=== PATIENT | female | born 1985 ===

== ENCOUNTER 2024-02-15 12:15 | Inpatient (IN) | payer OTHER ==
[~2024-02-15] VITALS: Ht 154.9 cm; Wt 63.0 kg
[2024-02-15 11:03] VITALS: BP 98/62
[~2024-02-15 12:15] MED LIST: BENADRYL25 MG; DICY20TA; EPIPEN0.3 MG/0.1; PANTOPRAZOLE SO20 MG; SINGULAIR10 MG; ZOFRAN; ZYRTEC10 MG
[2024-02-15 13:14] LABS: RH NEGATIVE
[2024-02-23] MEDS ORDERED: ONDANSETRON ODT4 MG (14:42)
[2024-02-23] MEDS ORDERED: CELECOXIB 200 MG CAPSULE PO STA (15:32)
[2024-02-23] MEDS ORDERED: ACETAMINOPHEN 325 MG TABLET PO STA (15:32)
[2024-02-23] MEDS ORDERED: MORPHINE SULFATE 4 MG/ML VIAL IV ONE ×2 (15:35→19:00)
[2024-02-23] MEDS ORDERED: GABAPENTIN 100 MG CAPSULE PO SCH (17:00)
[2024-02-23] MEDS ORDERED: CEFOXITIN SODIUM 2,000 MG VIAL IV SCH (17:00)
[2024-02-23] MEDS ORDERED: ONDANSETRON HCL 2 MG/ML VIAL IV SCH (17:00)
[2024-02-23] MEDS ORDERED: RINGERS SOLUTION,LACTATED 1,000 ML IV SCH (17:00)
[2024-02-23] MEDS ORDERED: MORPHINE SULFATE 4 MG/ML CARTRIDGE IV SCH (18:00)
[2024-02-23 19:37] LABS: HEMATOCRIT 33.1 % (36.0-45.00); HEMOGLOBIN 10.5 g/dL (12.0-15.00); MEAN CELL VOLUME 70.8 fL (80.00-100.00); MEAN CORPUSCULAR HEMOGLOBIN 22.5 pg (27.00-32.0); MEAN CORPUSCULAR HGB CONC 31.8 g/dl (32.0-36.0); PLATELET COUNT 228 K/uL (150-450); RED BLOOD COUNT 4.67 M/uL (4.00-6.00); RED CELL DISTRIBUTION WIDTH 16.9 % (11.5-14.5)
[2024-02-23 19:51] LABS: CALCIUM 8.5 mg/dL (8.5-10.1); CREATININE SERUM 0.55 mg/dL (0.55-1.02); GFR 123.05; POTASSIUM 4.16 mEq/L (3.5-5.1)
[2024-02-23 20:40] VITALS: BP 98/62
[2024-02-24] VITALS: BP 95/60
[2024-02-24 01:00] LABS: HEMATOCRIT 29.6 % (36.0-45.00); HEMOGLOBIN 9.3 g/dL (12.0-15.00); MEAN CORPUSCULAR HGB CONC 31.6 g/dl (32.0-36.0); PLATELET COUNT 211 K/uL (150-450); RED BLOOD COUNT 4.24 M/uL (4.00-6.00); RED CELL DISTRIBUTION WIDTH 17.1 % (11.5-14.5)
[2024-02-24 01:01] LABS: MEAN CELL VOLUME 69.8 fL (80.00-100.00)
[2024-02-24] MEDS ORDERED: IPRATROPIUM BROMIDE 0.5 MG/2.5 ML AMPUL.NEB IH STA ×2 (08:13→08:15)
[2024-02-24 08:28] VITALS: BP 105/70
[2024-02-24] MEDS ORDERED: DIPHENHYDRAMINE HCL 25 MG CAPSULE PO STA (10:45)
[2024-02-24] MEDS ORDERED: MONTELUKAST SODIUM 10 MG TABLET PO SCH (21:00)
[2024-02-24] MEDS ORDERED: ZYRTEC 10 MG PO SCH (21:00)
== END 2024-02-24 13:56 | disposition home or self-care (01) | DRG 743 ==
LOC: O/R 02-23 07:35 → SURH 02-23 12:15 → OB/GYN 02-23 16:21 → SURH 02-23 18:30 → OB/GYN 02-23 19:57
PROVIDERS: Surgery; Urology; ADMIT Obstetrics & Gynecology Gynecology; ATTEND Obstetrics & Gynecology Gynecology
PROC: 0TN64ZZ Release Right Ureter, Percutaneous Endoscopic Approach (ICD-10-PCS; 2024-02-23)
PROC: 0DNW4ZZ Release Peritoneum, Percutaneous Endoscopic Approach (ICD-10-PCS; 2024-02-23)
PROC: 0DTJ4ZZ Resection of Appendix, Percutaneous Endoscopic Approach (ICD-10-PCS; 2024-02-23)
PROC: 0T788DZ Dilation of Bilateral Ureters with Intraluminal Device, Via Natural or Artificial Opening Endoscopic (ICD-10-PCS; 2024-02-23)
PROC: 0UT94ZZ Resection of Uterus, Percutaneous Endoscopic Approach (ICD-10-PCS; principal; 2024-02-23 18:30)
PROC: 0UT54ZZ Resection of Right Fallopian Tube, Percutaneous Endoscopic Approach (ICD-10-PCS; 2024-02-23 18:30)
PROC: 0UT04ZZ Resection of Right Ovary, Percutaneous Endoscopic Approach (ICD-10-PCS; 2024-02-23 18:30)
PROC: 3E0F7GC Introduction of Other Therapeutic Substance into Respiratory Tract, Via Natural or Artificial Opening (ICD-10-PCS; 2024-02-24)
DX: N80.101 Endometriosis of right ovary, unspecified depth (principal); N73.6 Female pelvic peritoneal adhesions (postinfective); K66.0 Peritoneal adhesions (postprocedural) (postinfection); Z20.822 Contact with and (suspected) exposure to COVID-19; N83.291 Other ovarian cyst, right side; N80.8 Other endometriosis; K58.8 Other irritable bowel syndrome; J30.9 Allergic rhinitis, unspecified; D64.9 Anemia, unspecified; N20.0 Calculus of kidney